=== PATIENT | female | born 1990 | race Asian ===

== ENCOUNTER 2018-05-04 16:28 | Emergency (ER) | payer MEDICAID ==
[~2018-05-04] VITALS: Ht 160 cm; Wt 55.3 kg
[2018-05-04 16:49] VITALS: Ht 160 cm; Wt 55.3 kg
[2018-05-04 17:58] LABS: BASOPHIL % 0.7 % (0-2); PLATELET COUNT 263 x10^3mcL (130-400); RED CELL DISTRIBUTION WIDTH 12.7 % (11.5-14.5)
[2018-05-04 18:02] LABS: CALCIUM 8.8 mg/dL (8.5-10.1); CARBON DIOXIDE 26.4 mmol/L (21-32); CHLORIDE SERUM 102 mmol/L (98-107); CREATININE SERUM 0.7 mg/dL (0.6-1.0); GFR1 > 60 mL/min; GLUCOSE SERUM 91 mg/dL (74-106); POTASSIUM SERUM 3.8 mmol/L (3.5-5.1); SODIUM SERUM 135 mmol/L (136-145)
[2018-05-04 18:07] LABS: ALBUMIN 3.9 g/dL (3.4-5.0); ALKALINE PHOSPHATASE 41 U/L (46-116); ALT/SGPT 23 U/L (14-59); AMYLASE 70 U/L (25-115); AST/SGOT 15 U/L (15-37); BILIRUBIN TOTAL 0.6 mg/dL (0.20-1.00); LIPASE 139 IU/L (73-393); TOTAL PROTEIN, SERUM 7.4 g/dL (6.4-8.2)
[2018-05-04 19:17] VITALS: BP 99/63
== END 2018-05-04 19:42 | disposition home or self-care (01) ==
LOC: ED 16:28
PROVIDERS: Specialist
DX: K59.00 Constipation, unspecified (principal); D25.9 Leiomyoma of uterus, unspecified
CPT/HCPCS: 36415